=== PATIENT | female | born 1995 | race Caucasian/White ===

== ENCOUNTER 2016-10-31 21:52 | Emergency (ER) | payer BC ==
[~2016-10-31 21:52] MED LIST: CONCERTA; CORTISPORIN EAR10 M LEFT EAR; NEXIUM; NO MEDICATIONS; PREVACID; PROZAC20 M1 PO
== END 2016-10-31 22:52 ==
LOC: EDMED 21:52
PROC: 0HCQXZZ Extirpation of Matter from Finger Nail, External Approach (ICD-10-PCS; principal; 2016-10-31)
DX: S60.142A Contusion of left ring finger with damage to nail, initial encounter (principal); K21.9 Gastro-esophageal reflux disease without esophagitis; Z90.89 Acquired absence of other organs; Z87.891 Personal history of nicotine dependence; Z79.899 Other long term (current) drug therapy; W20.8XXA Other cause of strike by thrown, projected or falling object, initial encounter